=== PATIENT | female | born 1945 | race Caucasian/White ===

== ENCOUNTER 2016-08-10 18:50 | Emergency (ER) | payer MEDICARE, OTHER ==
--- NOTE | ~2016-08-10 | CR72 ---
[facility] A Service of [facility] & [facility] RADIOLOGY TEXT RESULTS PATIENT: MIKEL BALDERRAMA LOCATION: [facility] : 46 UNIT #: [id number] AGE: [address]: Jessica Mckeon MD SEX: F ORDER DR: [id number] [facility] [address] [place], [place] [address] [id number] E MR#: [id number] Acc #: [id number] NAME: MIKEL BALDERRAMA. : 1945 SEX: F STUDY DATE/TIME: 08/10/2016 17:46 UNIT: [facility] ROOM: STUDY DESCRIPTION: CR Chest Single View Portable Attending Physician: Jessica Mckeon M.D. Ordering Physician: Jessica Mckeon M.D. Primary Care Physician: Mary Mcnamara M.D. MEDICAL IMAGING REPORT This report is preliminary unless electronic signature is present EXAM Portable chest, 08/10/2016 COMPARISON 08/27/2009 HISTORY SUPPLIED Mid to low back pain, pain in chest and neck after fall yesterday. An AP view of the chest is obtained. The heart size appears normal. The lungs show chronic fibrosis but no acute infiltrates. There is atherosclerotic seen. There is atherosclerotic calcification of the aorta. The patient has had bilateral mammoplasty. No fractures are identified. CONCLUSION Underlying pulmonary fibrosis. Postop changes of bilateral mammoplasty, underlying pulmonary fibrosis. Postop changes of bilateral mammoplasty, atherosclerotic disease in the aorta. No acute findings. Dictated by... Bret Santamaria M.D. THIS IS AN ELECTRONICALLY VERIFIED REPORT Bret Santamaria M.D. at 08/11/2016 10:35 AM MANUELA/janet TD: 08/11/2016 01:16 JOB #: [id number] MEDICAL IMAGING REPORT Page 1 of 1 COPY
--- NOTE | ~2016-08-10 | CR230 ---
[facility] A Service of [facility] & [facility] RADIOLOGY TEXT RESULTS PATIENT: MIKEL BALDERRAMA LOCATION: [facility] : 46 UNIT #: [id number] AGE: [address]: Jessica Mckeon MD SEX: F ORDER DR: [id number] [facility] [address] [place], [place] [address] [id number] E MR#: [id number] Acc #: [id number] NAME: MIKEL BALDERRAMA. : 1945 SEX: F STUDY DATE/TIME: 08/10/2016 17:42 UNIT: [facility] ROOM: STUDY DESCRIPTION: CR Shoulder Min 2 View Rt Attending Physician: Jessica Mckeon M.D. Ordering Physician: Jessica Mckeon M.D. Primary Care Physician: Mary Mcnamara M.D. MEDICAL IMAGING REPORT This report is preliminary unless electronic signature is present EXAM Right shoulder, 08/10/2016 HISTORY Right shoulder pain after a fall yesterday. COMMENT 4 films right shoulder submitted for review. No previous. Mild degenerative change acromioclavicular joint. No acute fracture or dislocation. Suspect underlying chronic lung disease. IMPRESSION No acute fracture or dislocation right shoulder. Probably chronic lung disease. Suspect some mild degenerative change at the acromioclavicular joint. Dictated by... Emani Garcia M.D. THIS IS AN ELECTRONICALLY VERIFIED REPORT Emani Garcia M.D. at 08/11/2016 10:04 AM LEOPOLDO/janet TD: 08/11/2016 00:35 JOB #: [id number] MEDICAL IMAGING REPORT Page 1 of 1 COPY
--- NOTE | ~2016-08-10 | CR107 ---
[facility] A Service of [facility] & [facility] & [facility] RADIOLOGY TEXT RESULTS PATIENT: MIKEL BALDERRAMA LOCATION: [facility] : 46 UNIT #: [id number] AGE: [address]: Jessica Mckeon MD SEX: F ORDER DR: [id number] [facility] [address] [place], [place] [address] [id number] E MR#: [id number] Acc #: [id number] NAME: MIKEL BALDERRAMA. : 1945 SEX: F STUDY DATE/TIME: 08/10/2016 17:55 UNIT: [facility] ROOM: STUDY DESCRIPTION: CR Femur 2 Views Rt Attending Physician: Jessica Mckeon M.D. Ordering Physician: Jessica Mckeon M.D. Primary Care Physician: Mary Mcnamara M.D. MEDICAL IMAGING REPORT This report is preliminary unless electronic signature is present EXAM Femur, 2 views right, 08/10/2016 HISTORY Trauma, patient fell yesterday and complains of femur and hip pain, right sided. COMMENT Four films of the right femur reviewed. This is essentially a two-view study. No acute fracture, dislocation or radiopaque foreign body. Vascular calcifications are present and there is likely some mild degenerative change at the right knee. IMPRESSION No acute fracture, dislocation or radiopaque foreign body right femur. Dictated by... Emani Garcia M.D. THIS IS AN ELECTRONICALLY VERIFIED REPORT Emani Garcia M.D. at 08/11/2016 10:04 AM Kaden TD: 08/11/2016 01:21 JOB #: [id number] MEDICAL IMAGING REPORT Page 1 of 1 COPY
--- NOTE | ~2016-08-10 | CR181 ---
[facility] A Service of [facility] RADIOLOGY TEXT RESULTS PATIENT: MIKEL BALDERRAMA LOCATION: [facility] : 46 UNIT #: [id number] AGE: [address]: Jessica Mckeon MD SEX: F ORDER DR: [id number] [facility] [address] [place], [place] [address] [id number] E MR#: [id number] Acc #: [id number] NAME: MIKEL BALDERRAMA. : 1945 SEX: F STUDY DATE/TIME: 08/10/2016 18:14 UNIT: [facility] ROOM: STUDY DESCRIPTION: CR Lumbar Spine 2 or 3 Views Attending Physician: Jessica Mckeon M.D. Ordering Physician: Jessica Mckeon M.D. Primary Care Physician: Mary Mcnamara M.D. MEDICAL IMAGING REPORT This report is preliminary unless electronic signature is present EXAM Lumbar spine, plain film series, 08/10/2016 HISTORY Fell yesterday and has low back pain. COMMENT AP lateral lumbosacral views lumbar spine reviewed. No comparison. FINDINGS Bones are demineralized. Prominent atherosclerotic vascular calcifications. Mild exaggeration of lumbar lordosis. Mild loss of intervertebral disc height at L5-S1, L4-5 and mild lower lumbar facet arthritis but no acute fracture or traumatic malalignment is suspected. IMPRESSION No acute fracture or traumatic malalignment. Bones demineralized with some lower lumbar degenerative changes and mild exaggeration of lumbar lordosis. Dictated by... Emani Garcia M.D. THIS IS AN ELECTRONICALLY VERIFIED REPORT Emani Garcia M.D. at 08/11/2016 10:04 AM LEOPOLDO/janet TD: 08/11/2016 01:52 [facility] A Service [facility] RADIOLOGY TEXT RESULTS PATIENT: MIKEL BALDERRAMA LOCATION: [facility] : 46 UNIT #: [id number] AGE: [address]: Jessica Mckeon MD SEX: F ORDER DR: JOB #: [id number] MEDICAL IMAGING REPORT Page 1 of 1 COPY
--- NOTE | ~2016-08-10 | CR243 ---
[facility] A Service of [facility] RADIOLOGY TEXT RESULTS PATIENT: MIKEL BALDERRAMA LOCATION: [facility] : 46 UNIT #: [id number] AGE: [address]: Jessica Mckeon MD SEX: F ORDER DR: [id number] [facility] [address] [place], [place] [address] [id number] E MR#: [id number] Acc #: [id number] NAME: MIKEL BALDERRAMA. : 1945 SEX: F STUDY DATE/TIME: 08/10/2016 18:10 UNIT: [facility] ROOM: STUDY DESCRIPTION: CR Thoracic Spine 3 Views Attending Physician: Jessica Mckeon M.D. Ordering Physician: Jessica Mckeon M.D. Primary Care Physician: Mary Mcnamara M.D. MEDICAL IMAGING REPORT This report is preliminary unless electronic signature is present EXAM Thoracic spine, 08/10/2016 HISTORY Patient fell yesterday and has mid to low back pain. COMMENT AP, lateral, and swimmer's views of the thoracic spine are submitted for review. There is no prior. There is mild exaggeration of thoracic kyphosis. Bones are demineralized and there is multiple level mild anterior endplate spondylosis. Atherosclerotic vascular calcifications are present. Surgical clips right upper quadrant. No acute fracture or traumatic malalignment suspected. I suspect there is chronic lung disease. Please correlate with history. IMPRESSION 1. No acute fracture or traumatic malalignment thoracic spine. Bones are somewhat demineralized and there is mild exaggeration of thoracic kyphosis. 2. Please correlate for any history of chronic interstitial lung disease. Dictated by... Emani Garcia M.D. THIS IS AN ELECTRONICALLY VERIFIED REPORT Emani Garcia M.D. at 08/11/2016 10:04 AM LEOPOLDO/janet TD: 08/11/2016 01:47 JOB #: [id number] [facility] A Service of [facility] RADIOLOGY TEXT RESULTS PATIENT: MIKEL BALDERRAMA LOCATION: [facility] #: [id number] : 46 UNIT #: [id number] AGE: [address]: Jessica Mckeon MD SEX: F ORDER DR: MEDICAL IMAGING REPORT Page 1 of 1 COPY
--- NOTE | ~2016-08-10 | CR151 ---
[facility] A Service of [facility] & [facility] RADIOLOGY TEXT RESULTS PATIENT: MIKEL BALDERRAMA LOCATION: [facility] : 46 UNIT #: [id number] AGE: [address]: Jessica Mckeon MD SEX: F ORDER DR: [id number] [facility] [address] [place], [place] [address] [id number] E MR#: [id number] Acc #: [id number] NAME: MIKEL BALDERRAMA. : 1945 SEX: F STUDY DATE/TIME: 08/10/2016 17:49 UNIT: [facility] ROOM: STUDY DESCRIPTION: CR Hip Min 2 Views Rt Attending Physician: Jessica Mckeon M.D. Ordering Physician: Jessica Mckeon M.D. Primary Care Physician: Mary Mcnamara M.D. MEDICAL IMAGING REPORT This report is preliminary unless electronic signature is present EXAM Pelvis and right hip, 08/10/2016 HISTORY Fell yesterday and has right hip pain. COMMENT Frontal view of the pelvis and a frog-leg view of the right hip submitted for review. There is a separate dictation of the right femur. There is no acute fracture, dislocation or radio-opaque foreign body. Lower sacrum is obscured by overlying bowel gas. Bones are probably demineralized. IMPRESSION No acute fracture or dislocation right hip. Lower sacrum is obscured by overlying bowel gas. Dictated by... Emani Garcia M.D. THIS IS AN ELECTRONICALLY VERIFIED REPORT Emani Garcia M.D. at 08/11/2016 10:04 AM LEOPOLDO/janet TD: 08/11/2016 00:39 JOB #: [id number] MEDICAL IMAGING REPORT Page 1 of 1 COPY
--- NOTE | ~2016-08-10 | CR58 ---
[facility] A Service of [facility] RADIOLOGY TEXT RESULTS PATIENT: MIKEL BALDERRAMA LOCATION: [facility] : 46 UNIT #: [id number] AGE: [address]: Jessica Mckeon MD SEX: F ORDER DR: [id number] [facility] [address] [place], [place] [address] [id number] E MR#: [id number] Acc #: [id number] NAME: MIKEL BALDERRAMA. : 1945 SEX: F STUDY DATE/TIME: 08/10/2016 18:03 UNIT: [facility] ROOM: STUDY DESCRIPTION: CR Cervical Spine 2 or 3 Views Attending Physician: Jessica Mckeon M.D. Ordering Physician: Jessica Mckeon M.D. Primary Care Physician: Mary Mcnamara M.D. MEDICAL IMAGING REPORT This report is preliminary unless electronic signature is present EXAM Cervical spine plain film series, 08/10/2016 HISTORY Trauma, right shoulder pain radiates to elbow after a fall yesterday. Neck pain. COMMENT AP, lateral, odontoid, and swimmer's views of the cervical spine submitted for review. 5 films included. No previous. Cervical vertebral bodies are seen from C1 to T1. Alignment is normal. There is mild loss of intervertebral disc height at C5-6. Prevertebral soft tissues are normal. Bones are mildly demineralized. There are vascular calcifications of the carotid bifurcations. Partly seen is likely chronic interstitial lung disease. IMPRESSION 1. No acute fracture or traumatic malalignment cervical spine. 2. Suspect chronic interstitial lung disease. Please correlate with any relevant clinical history. Atherosclerotic vascular calcifications noted carotid bifurcation levels best pursued with carotid Doppler ultrasound. Dictated by... Emnai Garcia M.D. THIS IS AN ELECTRONICALLY VERIFIED REPORT Emani Garcia M.D. at 08/11/2016 10:04 AM LEOPOLDO/janet [facility] A Service [facility] RADIOLOGY TEXT RESULTS PATIENT: MIKEL BALDERRAMA LOCATION: [facility] #: [id number] : 46 UNIT #: [id number] AGE: [address]: Jessica Mckeon MD SEX: F ORDER DR: TD: 08/11/2016 01:36 JOB #: [id number] MEDICAL IMAGING REPORT Page 1 of 1 COPY
--- NOTE | ~2016-08-10 | CT71 ---
[facility] A Service of [facility] RADIOLOGY TEXT RESULTS PATIENT: MIKEL BALDERRAMA LOCATION: [facility] : 46 UNIT #: [id number] AGE: [address]: Jessica Mckeon MD SEX: F ORDER DR: [id number] [facility] [address] [place], [place] [address] [id number] E MR#: [id number] Acc #: [id number] NAME: MIKEL BALDERRAMA. : 1945 SEX: F STUDY DATE/TIME: 08/10/2016 15:00 UNIT: [facility] ROOM: STUDY DESCRIPTION: CT Head Wo Contrast Attending Physician: Jessica Mckeon M.D. Ordering Physician: Jessica Mckeon M.D. Primary Care Physician: Mary Mcnamara M.D. MEDICAL IMAGING REPORT This report is preliminary unless electronic signature is present EXAM CT brain without contrast media 08/10/2016 COMPARISON Examination is dated 01/04/2014 HISTORY Fell yesterday. Hit right side of head complaining of right-sided head pain. Headache and hypertension, numbness and tingling in lower right arm blurry vision beginning today. TECHNIQUE Transaxial imaging of the brain was performed without contrast media. Bone and soft tissue windows are reviewed. This CT exam was performed with one or more of the following radiation dose reduction techniques: automatic control, adjustment of mA and/or kV according to patient size, and iterative reconstruction. FINDINGS Ventricular size and configuration is normal. No intra or extraaxial mass lesions, fluid collections or mass effect are seen. No focal areas of low attenuation or evidence of acute fracture. CONCLUSION Normal noncontrast CT of the brain. Dictated by... Bret Santamaria M.D. THIS IS AN ELECTRONICALLY VERIFIED REPORT Bret Santamaria M.D. at 08/11/2016 10:35 AM [facility] A Service of [facility] RADIOLOGY TEXT RESULTS PATIENT: MIKEL BALDERRAMA LOCATION: [facility] : 46 UNIT #: [id number] AGE: [address]: Jessica Mckeon MD SEX: F ORDER DR: MANUELA/jerry TD: 08/10/2016 20:22 JOB #: [id number] MEDICAL IMAGING REPORT Page 1 of 1 COPY
[2016-08-10 14:09] LABS: BASOPHIL% 0.5 % (0-2.5); DIFF IND NO; EOSINOPHIL# 0.4 X10e3 (0-0.7); EOSINOPHIL% 3.9 % (0.0-7.0); HEMATOCRIT 40.4 % (35.0-45.0); HEMOGLOBIN 13.4 gm/dL (12.0-16.0); LYMPHOCYTE# 1.2 X10e3 (1.0-3.5); MEAN CELL VOLUME 91.1 FL (83-96); MEAN CORPUSCULAR HEMOGLOBIN 30.2 PG (28-34); MEAN CORPUSCULAR HGB CONC 33.2 g/dL (30-36); MEAN PLATELET VOLUME 8.6 FL (6.5-11.5); MONOCYTE# 0.9 X10e3 (0-1.0); MONOCYTE% 9.2 % (3.0-12.0); NEUTROPHIL# 7.4 X10e3 (1.5-7.1); NEUTROPHIL% 74.4 % (40-75); PLATELET COUNT 195 X10e3 (140-420); RED BLOOD COUNT 4.44 X10e (3.90-5.30); RED CELL DISTRIBUTION WIDTH 13.6 % (11.0-15.5)
[2016-08-10 14:22] LABS: PARTIAL THROMBOPLASTIN TIME 26.3 SECONDS (23.5-31.3); PROTHROMBIN TIME (PATIENT) 10.8 SECONDS (9.6-11.5)
[2016-08-10 14:40] LABS: ALBUMIN SERUM 3.7 g/dL (3.5-5.0); ALKALINE PHOSPHATASE 107 U/L (32-92); ALT (SGPT) 30 U/L (10-40); AST (SGOT) 43 U/L (10-42); BILIRUBIN, DIRECT 0.1 mg/dL (0.0-0.2); BILIRUBIN,INDIRECT 0.6 mg/dL (0.0-0.9); BILIRUBIN,TOTAL 0.7 mg/dL (0.2-2.0); BLOOD UREA NITROGEN 16 mg/dL (9-23); BUN/CREATININE RATIO 17.77; CALCIUM SERUM 8.6 mg/dL (8.4-10.2); CARBON DIOXIDE 27 mmol/L (22-31); CHLORIDE 96 mmol/L (100-111); CPK (CREATINE PHOSPHOKINASE) 95 IU/L (26-140); CREATININE SERUM 0.9 mg/dL (0.6-1.4); GLOM FILT RATE Estimated ABOVE60 mL/min (>60); GLUCOSE FASTING 94 mg/dL (70-110); PROTEIN TOTAL SERUM 6.9 g/dL (6.0-8.3); SODIUM 132 mmol/L (135-145)
[2016-08-10 17:23] LABS: URINE SOURCE CLEAN CATCH
[2016-08-10 17:33] LABS: URINE APPEARANCE CLEAR; URINE BILIRUBIN NEG (NEG); URINE BLOOD NEG (NEG); URINE COLOR YELLOW; URINE GLUCOSE NEG (NEG); URINE KETONE 1+ (NEG); URINE LEUKOCYTE ESTERASE NEG (NEG); URINE NITRATE NEG (NEG); URINE PH 5.5 (5-8); URINE PROTEIN NEG (NEG); URINE SPECIFIC GRAVITY 1.014 (1.003-1.035); URINE UROBILINOGEN 0.2 MG/DL (NEG)
[2016-08-10 17:47] LABS: CULTURE INDICATED? NO
[~2016-08-10 18:50] MED LIST: COMBIVENT INH14.7 GM INH; DUONEB 2.5-0.5 M3 ML NEB; PHENERGAN/CODEIN5 ML PO; SYMBICORT INH; ZITHROMAX1 G/PKT PO
== END 2016-08-10 20:19 | disposition home or self-care (01) ==
LOC: CED 18:50
PROVIDERS: Emergency Medicine
DX: S70.01XA Contusion of right hip, initial encounter (principal); J45.909 Unspecified asthma, uncomplicated; Z87.891 Personal history of nicotine dependence; W18.39XA Other fall on same level, initial encounter; Y92.098 Other place in other non-institutional residence as the place of occurrence of the external cause
CPT/HCPCS: 36415; 51702; 70450; 71010; 72040; 72072; 72100; 73030; 73502; 73552; 80048; 80076; 81003; 82550; 85025; 85610; 85730; 94640; 96361; 96374; 96375; 99284; J2270; J2405

== ENCOUNTER → 2016-11-23 | Outpatient (CLI) | payer MEDICARE, OTHER ==
--- NOTE | ~2016-11-23 | BD1 ---
[facility] A Service of [facility] & [facility] RADIOLOGY TEXT RESULTS PATIENT: MIKEL BALDERRAMA LOCATION: [facility] : 46 UNIT #: [id number] AGE: [address]: Mary Mcnamara MD SEX: F ORDER DR: [id number] [facility] [address] [place], [place] [address] [id number] O MR#: [id number] Acc #: [id number] NAME: MIKEL BALDERRAMA : 1945 SEX: F STUDY DATE/TIME: 11/23/2016 10:55 UNIT: [facility] ROOM: STUDY DESCRIPTION: BD Dexa Bone Dens 1+ Site Attending Physician: Mary Mcnamara M.D. Referring Physician: Mary Mcnamara M.D. Ordering Physician: Mary Mcnamara M.D. Primary Care Physician: Mary Mcnamara M.D. MEDICAL IMAGING REPORT This report is preliminary unless electronic signature is present EXAM DXA scan 11/23/2016 HISTORY Status post menopause with no hormone replacement therapy. Osteopenia. Hysterectomy at age 37 with removal of 1 ovary. Smoking history for over 50 years. Family history of osteoporosis in mother. FINDINGS Bone mineral density in the lumbar spine from L1-L4 was 0.88 g/cm2 which is 1.5 standard deviations below the mean when compared to the young adult reference population which is characteristic of osteopenia. This is 0.6 standard deviations above the mean when compared to the age-matched population. Bone mineral density in the left femoral neck was 0.621 g/cm2 which is 2.1 standard deviations below the mean when compared to the young adult reference population which is characteristic of osteopenia. This is 0.2 standard deviations below the mean when compared to the age-matched population. IMPRESSION Bone mineral density in the lumbar spine and left hip characteristic of osteopenia. Dictated by... Salvatore Perez M.D. THIS IS AN ELECTRONICALLY VERIFIED REPORT Salvatore Perez M.D. at 11/25/2016 8:03 AM MILO/aly TD: 11/23/2016 15:55 JOB #: [id number] [facility] A Service of [facility] & [facility] RADIOLOGY TEXT RESULTS PATIENT: MIKEL BALDERRAMA LOCATION: [facility] #: [id number] : 47 UNIT #: [id number] AGE: [address]: Mary Mcnamara MD SEX: F ORDER DR: MEDICAL IMAGING REPORT Page 1 of 1 COPY
== END | disposition home or self-care (01) ==
LOC: CWCC 10:33
DX: M81.0 Age-related osteoporosis without current pathological fracture (principal); M85.89 Other specified disorders of bone density and structure, multiple sites
CPT/HCPCS: 77080

== ENCOUNTER → 2016-11-30 | Outpatient (CLI) | payer MEDICARE, OTHER ==
--- NOTE | ~2016-11-30 | US37 ---
[facility] A Service of [facility] RADIOLOGY TEXT RESULTS PATIENT: MIKEL BALDERRAMA LOCATION: [facility] : 47 UNIT #: [id number] AGE: [address]: Evonne Ladd MD SEX: F ORDER DR: [id number] [facility] [address] [place], [place] [address] [id number] O MR#: [id number] Acc #: [id number] NAME: MIKEL BALDERRAMA. : 1945 SEX: F STUDY DATE/TIME: 11/30/2016 10:33 UNIT: [facility] ROOM: STUDY DESCRIPTION: US Carotid W/Doppler Bilateral Attending Physician: Evonne Ladd M.D. Referring Physician: Evonne Ladd M.D. Ordering Physician: Evonne Ladd M.D. Primary Care Physician: Mary Mcnamara M.D. MEDICAL IMAGING REPORT This report is preliminary unless electronic signature is present EXAM Carotid duplex scan DATE OF EXAMINATION: 11/30/16 HISTORY Carotid bruit FINDINGS The right common carotid artery has a small amount of heterogeneous plaque. There is heterogeneous dense plaque in the right carotid bulb which extends up into the proximal internal and external carotid arteries. Peak systolic velocity in the mid right internal carotid artery is 83 cm/sec with an end diastolic velocity of 23 cm/sec. The ICA:CCA on the right is 1.43. Peak systolic velocity in the right external carotid artery is 124 cm/sec. The right vertebral artery is patent with antegrade flow. The left common carotid artery has a small amount of dense plaque. There is dense irregular plaque in the left carotid bulb which extends up into the proximal internal and external carotid arteries. Peak systolic velocity in the distal left internal carotid artery is 90 cm/sec with an end diastolic velocity of 28 cm/sec. The ICA:CCA ratio on the left is 1.18. Peak systolic velocity in the let external carotid artery is 107 cm/sec. The left vertebral artery is patent with antegrade flow. IMPRESSION Plaque, but no significant stenosis (less than 50%) in the internal and external carotid arteries bilaterally. Patent vertebral arteries bilaterally with antegrade flow. ST[facility]. [facility] A Service of [facility] & [facility] RADIOLOGY TEXT RESULTS PATIENT: MIKEL BALDERRAMA LOCATION: [facility] : 47 UNIT #: [id number] AGE: [address]: Evonne Ladd MD SEX: F ORDER DR: Dictated by... Randy Guzman M.D. THIS IS AN ELECTRONICALLY VERIFIED REPORT Randy Guzman M.D. at 12/05/2016 8:16 AM BROOK/yuliet TD: 11/30/2016 13:57 JOB #: [id number] MEDICAL IMAGING REPORT Page 1 of 1 COPY
== END | disposition home or self-care (01) ==
LOC: CNIV 10:04
DX: R09.89 Other specified symptoms and signs involving the circulatory and respiratory systems (principal); I65.23 Occlusion and stenosis of bilateral carotid arteries
CPT/HCPCS: 93880